=== PATIENT | female | born 2005 | race Caucasian/White ===

== ENCOUNTER 2025-01-04 02:50 | Observation (INO) | payer MEDICAID ==
[~2025-01-04] VITALS: Ht 175.3 cm; Wt 59.0 kg
[2025-01-04] MEDS ORDERED: PREN-96 PO (03:40)
--- NOTE | 2025-01-04 04:13 | DVHDS2 ---
Physician Discharge Progress N Final Diagnosis: 23 weeks gestation Decreased movement Condition on Discharge: Good Disposition: Home Discharge Instructions: Diet: Regular Activity: No Restrictions, As Tolerated Follow Up/Referral: KEEP ALL CURRENT APPOINTMENTS WITH [facility] Medications: CONTINUE TAKING VITAMINS DAILY Follow Up Care: Discharge Statement: "Patient was advised to return to the ER or call 911 if any headaches, dizziness, shortness of breath, chest pain, abdominal pain, bleeding, fevers, or worsening of medical condition. Patient was counseled about treatment plan, medications, possible side effects, patientverbalized understanding. All questions were answered to the best of my ability. 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
== END 2025-01-04 03:50 | disposition home or self-care (01) ==
LOC: LDRP 02:50
PROVIDERS: ADMIT Obstetrics & Gynecology; ATTEND Obstetrics & Gynecology
DX: O36.8120 Decreased fetal movements, second trimester, not applicable or unspecified (principal); Z3A.23 23 weeks gestation of pregnancy; Z98.890 Other specified postprocedural states
CPT/HCPCS: 81002; 94760; G0378

== ENCOUNTER 2025-02-15 23:21 | Observation (INO) | payer MEDICAID ==
[~2025-02-15] VITALS: Ht 162.6 cm; Wt 63.5 kg
[~2025-02-15 23:21] MED LIST: PREN-96 PO
[2025-02-16] MEDS: ACETAMINOPHEN 325 MG TAB PO ONE (00:24)
--- NOTE | 2025-02-16 00:54 | DVH ---
OB ULTRASOUND <14 WEEKS: HISTORY: Pre term labor TECHNIQUE: Multiple real-time grayscale sonographic images of the pelvis with duplex Doppler color f low, spectral and M-mode analysis. COMPARISON: US OB TRANS VAGINAL US on DOS: 02/16/25 FINDINGS: A limited study was performed. Cervix measures 2.8 cm transvaginally and is closed. Presentation is cephalic. Placenta anterior and clear of internal os. heart rate 160 beats pe r minute. KERRI 16.3 . IMPRESSION: Limited study. Cervix measures 2.8 cm and is closed. KERRI 16.3
[2025-02-16 01:11] LABS: Urine Protein, UAD Negative (Negative)
[2025-02-16] MEDS: cefTRIAXone SOD 1,000 MG VL IM ONE (01:54)
[2025-02-16] MEDS ORDERED: NITR-87 PO (02:37)
--- NOTE | 2025-02-16 02:39 | DVHDS2 ---
Physician Discharge Progress N Final Diagnosis: Urinary Tract Infection Secondary Diagnosis: IUP 30 wk, not in labor Operations or Procedures: Operations or Procedures NST OB US w/ cervical length PATIENT: KRISTINA THOMAS ACCT: [id number] UNIT: [id number] : 2005 LOC: [facility] ROOM / BED: TRIAGE1 / A AGE / SEX: 19 / F ADM STATUS: ADM IN SERVICE 0004 ORDERING PHYSICIAN: PATRICE SAINZ DO PROCEDURE(s): OBLTD - OBSTERICAL LIMITED REASON: Pre term labor ORDER NUMBER(s): [id number], ACCESSION NUMBER(s): [id number] OB ULTRASOUND <14 WEEKS: HISTORY: Pre term labor TECHNIQUE: Multiple real-time grayscale sonographic images of the pelvis with duplex Doppler color flow, spectral and M-mode analysis. COMPARISON: US OB TRANS VAGINAL US on DOS: 02/16/25 FINDINGS: A limited study was performed. Cervix measures 2.8 cm transvaginally and is closed. Presentation is cephalic. Placenta anterior and clear of internal os. heart rate 160 beats per minute. KERRI 16.3 . IMPRESSION: Limited study. Cervix measures 2.8 cm and is closed. KERRI 16.3 ATED BY: VADIM EDDY MD DICTATED DATE/TIME: 02/16/25 0052 Commentary: Commentary IM rocephin given for UTI and PO Rx Macrobid 100mg x 7 days Condition on Discharge: Stable Disposition: Home Discharge Instructions: Diet: Regular Activity: No Restrictions, As Tolerated Follow Up/Referral: 1 wk w/ Primary OB Medications: Macrobid 100mg PO BID x 7 day Rx given Inpatient Rocephin 1gm IM given for UTI Follow Up Care: Discharge Statement: "Patient was advised to return to the ER or call 911 if any headaches, di zziness, shortness of breath, chest pain, abdominal pain, bleeding, fevers, or worsening of medical condition. Patient was counseled about treatment plan, medications, possible side effects, patientverbalized understanding. All questions were answered to the best of my ability. This discharge took greater then 30 minutes in planning, reviewing documentation, counseling the patient, and discussing with other team members." Visit Coding OBGYN Date of Service: Feb 16, 2025 Billing Provider: PATRICE SAINZ DO [employer] Common Visit Codes: 14463-HAL/OBS SAME DATE (HIGH) PATRICE SAINZ DO Feb 16, 2025 02:39
== END 2025-02-16 02:22 | disposition home or self-care (01) ==
LOC: LDRP 23:21
PROVIDERS: ADMIT Obstetrics & Gynecology; ATTEND Obstetrics & Gynecology
DX: O23.43 Unspecified infection of urinary tract in pregnancy, third trimester (principal); N39.0 Urinary tract infection, site not specified; Z3A.30 30 weeks gestation of pregnancy; Z98.890 Other specified postprocedural states; Z79.899 Other long term (current) drug therapy
CPT/HCPCS: 59025; 76815; 76817; 81001; 81002; 94760; J0696